=== PATIENT | male | born 1990 | race Caucasian/White ===

== ENCOUNTER 2023-05-17 04:14 | Inpatient (IN) | payer BC ==
[2023-05-17] VITALS (21 sets, daily range): BP systolic 107–142; PULSE 88–108; RESP 10–33; TEMP 96.4–98.5; O2SAT 92–99
[~2023-05-17] VITALS: Ht 188 cm; Wt 111.1 kg
[~2023-05-17 04:14] MED LIST: LIB25 PO; PRED20TA PO; Thiamine Hcl GT
[2023-05-17] MEDS ORDERED: ONDANSETRON HCL 4 MG/2 ML VIAL IVP ONE (04:45)
[2023-05-17] MEDS ORDERED: FUROSEMIDE 40 MG/4 ML VIAL IVP ONE ×2 (04:45→06:00)
[2023-05-17] MEDS ORDERED: MORPHINE 4 MG INJ. 4 MG/ML VIAL IVP ONE (04:45)
[2023-05-17 05:06] LABS: BASOPHILS # (AUTO) 0.1 K/uL (0.0-0.2); BASOPHILS % (AUTO) 0.3 % (0.0-2.0); EOSINOPHILS # (AUTO) 0.1 K/uL (0.0-0.4); EOSINOPHILS % (AUTO) 0.5 % (0.0-4.0); HEMATOCRIT 35.8 % (36-54); LYMPHOCYTES # (AUTO) 0.8 K/uL (1.0-5.5); LYMPHOCYTES % (AUTO) 2.9 % (20.5-51.5); MEAN CORPUSCULAR HEMOGLOBIN 39 pg (27-31); MEAN CORPUSCULAR HGB CONC 34 % (32-36); MEAN CORPUSCULAR VOLUME 116 fL (79.0-98.0); MONOCYTES # (AUTO) 0.5 K/uL (0.0-1.0); NEUTROPHILS % (AUTO) 94.3 % (40.0-70.0); PLATELET COUNT (AUTO) 109 K/uL (130-430); RED BLOOD CELL COUNT(AUTO) 3.08 MIL/uL (4.2-6.2); RED CELL DISTRIBUTION WIDTH 16.5 % (9.0-15.0); WHITE BLOOD COUNT (AUTO) 25.5 K/uL (4.8-10.8)
[2023-05-17 05:20] LABS: CALCIUM 7.4 mg/dL (8.4-11.0); CREATININE 4.15 mg/dL (0.55-1.30); POTASSIUM 5.7 mmol/L (3.5-5.1)
[2023-05-17 05:42] LABS: ALBUMIN 1.3 g/dL (3.4-4.8); TOTAL PROTEIN, SERUM 7.1 g/dL (6.4-8.3)
[2023-05-17] MEDS ORDERED: CALCIUM GLUCONATE 1 GM in NS 100 ML IV ONE (05:45)
[2023-05-17] MEDS ORDERED: INSULIN REGULAR, HUMAN 10 UNITS/0.1 ML, 3 ML VIAL IVP ONE (05:45)
[2023-05-17] MEDS ORDERED: PIPERACILLIN/TAZOBACTAM 2.25 GM in NS 50 ML IV ONE (05:45)
[2023-05-17] MEDS ORDERED: VANCOMYCIN HCL 1.25 GM/NS 250 ML IV ONE (05:45)
[2023-05-17] MEDS ORDERED: DEXTROSE 50% JECT 50 ML DISP.SYRIN IVP ONE (05:45)
[2023-05-17] MEDS ORDERED: SODIUM POLYSTYRENE SULFONATE 15 GM/60 ML UDBTL PO ONE (05:45)
[2023-05-17 05:53] LABS: TOTAL BILIRUBIN 26.1 mg/dL (0.0-1.0)
[2023-05-17] MEDS ORDERED: ALBUTEROL SULFATE 0.083% 2.5 MG/3 ML VIAL.NEB INH ONE (06:00)
[2023-05-17] MEDS ORDERED: CALCIUM GLUCONATE 1 GM/10 ML VIAL ONE (06:04)
[2023-05-17] MEDS ORDERED: PIPERACILLIN/TAZOBACTAM 2.25 GM VIAL IV ONE (06:05)
[2023-05-17] MEDS ORDERED: VANCOMYCIN HCL 1000 MG/VIAL IV ONE (06:48)
[2023-05-17] MEDS ORDERED: NACL 0.9% 1,000 ML IV ONE (07:45)
[2023-05-17] MEDS ORDERED: FOLIC ACID 1 MG, THIAMINE HCL 100 MG, MAGNESIUM SULFATE 1 GM, MVI 10 ML in NACL 0.9% 1,... IV SCH (10:45)
[2023-05-17] MEDS ORDERED: predniSONE 20 MG TABLET PO ONE (11:00)
[2023-05-17] MEDS ORDERED: THIAMINE HCL 100 MG, MAGNESIUM SULFATE 1 GM in NS 100 ML IV SCH (13:00)
[2023-05-17] MEDS ORDERED: FOLIC ACID 1 MG, MVI 10 ML in NACL 0.9% 1,000 ML IV SCH (13:00)
[2023-05-17] MEDS: chlordiazePOXIDE HCL 25 MG CAPSULE PO SCH ×2 (16:16→22:01)
[2023-05-17] MEDS ORDERED: traMADol HCL HCL 50 MG TABLET (ULTRAM) PO PRN (17:00)
[2023-05-17] MEDS: cefTRIAXone 1 GM in D5W 50 ML IV SCH (17:03)
[2023-05-17 17:21] LABS: CALCIUM 7.3 mg/dL (8.4-11.0); CREATININE 4.27 mg/dL (0.55-1.30); POTASSIUM 5.3 mmol/L (3.5-5.1)
[2023-05-17 17:37] LABS: INR 6.4 (0.80-1.20); PROTHROMBIN TIME 61.3 SECS (9.5-12.5)
[2023-05-17] MEDS ORDERED: PHYTONADIONE 10 MG/ML AMP SUBCUT ONE (18:00)
[2023-05-17] MEDS: ALBUMIN HUMAN 25% 100 ML IV SCH ×2 (18:16→23:13)
[2023-05-17 18:36] LABS: BILIRUBIN,URINE 3+ (NEGATIVE); COLOR,URINE YELLOW (YELLOW); GLUCOSE,URINE NEGATIVE (NEGATIVE); KETONES,URINE NEGATIVE (NEGATIVE); LEUKOCYTE ESTERASE ,URINE NEGATIVE (NEGATIVE); NITRITE, URINE NEGATIVE (NEGATIVE); PH,URINE 5.5 (5.0-8.0); PROTEIN URINE NEGATIVE (NEGATIVE); UROBILINOGEN,URINE 0.2 (0.2-1.0)
[2023-05-17 18:57] LABS: BLOOD, URINE TRACE (NEGATIVE)
[2023-05-17 18:58] LABS: CLARITY/URINE HAZY (CLEAR)
[2023-05-17 19:00] LABS: BACTERIA,URINE None Seen /HPF (None Seen); RBC,URINE 0-3 /HPF (0-3); WBC,URINE 0-3 /HPF (0-3)
[2023-05-17] MEDS: MORPHINE 2 MG/ML INJ. SYRINGE IVP PRN (23:49)
[2023-05-18] VITALS (25 sets, daily range): BP systolic 101–156; PULSE 88–96; RESP 15–36; TEMP 97–98.2; O2SAT 65–100
[2023-05-18] MEDS: ALBUMIN HUMAN 25% 100 ML IV SCH (05:08)
[2023-05-18] MEDS: chlordiazePOXIDE HCL 25 MG CAPSULE PO SCH ×3 (05:38→22:00)
[2023-05-18 06:34] LABS: HEMATOCRIT 30.5 % (36-54); HEMOGLOBIN 10.4 g/dL (14.0-18.0); MEAN CORPUSCULAR HEMOGLOBIN 40 pg (27-31); MEAN CORPUSCULAR HGB CONC 34 % (32-36); MEAN CORPUSCULAR VOLUME 116 fL (79.0-98.0); PLATELET COUNT (AUTO) 63 K/uL (130-430); RED BLOOD CELL COUNT(AUTO) 2.64 MIL/uL (4.2-6.2); RED CELL DISTRIBUTION WIDTH 16.3 % (9.0-15.0); WHITE BLOOD COUNT (AUTO) 18.2 K/uL (4.8-10.8)
[2023-05-18] MEDS: MORPHINE 2 MG/ML INJ. SYRINGE IVP PRN (06:56)
[2023-05-18 06:58] LABS: CREATININE 4.17 mg/dL (0.55-1.30); PHOSPHORUS 9.3 mg/dL (2.7-4.5); POTASSIUM 5.3 mmol/L (3.5-5.1); TOTAL PROTEIN, SERUM 6.6 g/dL (6.4-8.3)
[2023-05-18 07:35] LABS: CALCIUM 6.9 mg/dL (8.4-11.0)
[2023-05-18 07:39] LABS: TOTAL BILIRUBIN 28.3 mg/dL (0.0-1.0)
[2023-05-18 07:51] LABS: ERYTHROCYTE SEDIMENTATION RATE 78 MM/HR (0-15)
[2023-05-18 08:07] LABS: INR 1.7 (0.80-1.20); PROTHROMBIN TIME 17.6 SECS (9.5-12.5)
[2023-05-18] MEDS: predniSONE 20 MG TABLET PO SCH (08:34)
[2023-05-18] MEDS ORDERED: SODIUM POLYSTYRENE SULFONATE 15 GM/60 ML UDBTL PO ONE (09:45)
[2023-05-18] MEDS ORDERED: CALCIUM GLUCONATE 2 GM in NS 80 ML IV ONE (09:45)
[2023-05-18 09:51] LABS: PLATELET ESTIMATE DECREASED (ADEQUATE)
[2023-05-18] MEDS: NACL 0.9% 1,000 ML IV SCH ×2 (11:20→20:38)
[2023-05-18] MEDS: cefTRIAXone 1 GM in D5W 50 ML IV SCH (17:56)
[2023-05-19] VITALS (7 sets, daily range): BP systolic 106–137; PULSE 89–93; RESP 16–18; TEMP 96.9–97.9; O2SAT 95–99
[2023-05-19] MEDS: chlordiazePOXIDE HCL 25 MG CAPSULE PO SCH ×3 (06:00→22:00)
[2023-05-19 06:52] LABS: BASOPHILS # (AUTO) 0.4 K/uL (0.0-0.2); BASOPHILS % (AUTO) 2.5 % (0.0-2.0); EOSINOPHILS # (AUTO) 0.1 K/uL (0.0-0.4); EOSINOPHILS % (AUTO) 0.3 % (0.0-4.0); HEMATOCRIT 31.7 % (36-54); HEMOGLOBIN 10.8 g/dL (14.0-18.0); LYMPHOCYTES # (AUTO) 0.4 K/uL (1.0-5.5); LYMPHOCYTES % (AUTO) 2.1 % (20.5-51.5); MEAN CORPUSCULAR HEMOGLOBIN 39 pg (27-31); MEAN CORPUSCULAR HGB CONC 34 % (32-36); MEAN CORPUSCULAR VOLUME 115 fL (79.0-98.0); MONOCYTES # (AUTO) 0.5 K/uL (0.0-1.0); MONOCYTES % (AUTO) 2.8 % (1.7-9.3); NEUTROPHILS # (AUTO) 16.9 K/uL (1.8-7.7); NEUTROPHILS % (AUTO) 92.3 % (40.0-70.0); PLATELET COUNT (AUTO) 68 K/uL (130-430); RED BLOOD CELL COUNT(AUTO) 2.75 MIL/uL (4.2-6.2); RED CELL DISTRIBUTION WIDTH 16.3 % (9.0-15.0); WHITE BLOOD COUNT (AUTO) 18.3 K/uL (4.8-10.8)
[2023-05-19] MEDS: NACL 0.9% 1,000 ML IV SCH ×2 (07:00→17:19)
[2023-05-19 07:19] LABS: INR 1.8 (0.80-1.20); PROTHROMBIN TIME 18.5 SECS (9.5-12.5)
[2023-05-19 07:29] LABS: ERYTHROCYTE SEDIMENTATION RATE 75 MM/HR (0-15)
[2023-05-19 07:32] LABS: BILIRUBIN,DIRECT 22.6 mg/dL (0.0-0.3); CREATININE 4.08 mg/dL (0.55-1.30); POTASSIUM 4.8 mmol/L (3.5-5.1); TOTAL PROTEIN, SERUM 6.5 g/dL (6.4-8.3)
[2023-05-19 07:59] LABS: CALCIUM 6.7 mg/dL (8.4-11.0); TOTAL BILIRUBIN 29.4 mg/dL (0.0-1.0)
[2023-05-19] MEDS: predniSONE 20 MG TABLET PO SCH (08:26)
[2023-05-20 00:19] VITALS: BP_SYST 127; PULSE 89; RESP 16; TEMP 96.9; O2SAT 99
[2023-05-20] MEDS: NACL 0.9% 1,000 ML IV SCH ×2 (04:20→12:58)
[2023-05-20] MEDS: chlordiazePOXIDE HCL 25 MG CAPSULE PO SCH (05:38)
[2023-05-20 07:30] VITALS: BP_SYST 137; PULSE 90; RESP 18; TEMP 97.5; O2SAT 96
[2023-05-20 07:32] LABS: BASOPHILS # (AUTO) 0.1 K/uL (0.0-0.2); BASOPHILS % (AUTO) 0.3 % (0.0-2.0); EOSINOPHILS % (AUTO) 0.2 % (0.0-4.0); HEMATOCRIT 32.2 % (36-54); LYMPHOCYTES # (AUTO) 0.4 K/uL (1.0-5.5); LYMPHOCYTES % (AUTO) 2.2 % (20.5-51.5); MEAN CORPUSCULAR HEMOGLOBIN 39 pg (27-31); MEAN CORPUSCULAR HGB CONC 34 % (32-36); MEAN CORPUSCULAR VOLUME 115 fL (79.0-98.0); MONOCYTES # (AUTO) 0.6 K/uL (0.0-1.0); MONOCYTES % (AUTO) 3.5 % (1.7-9.3); NEUTROPHILS % (AUTO) 93.8 % (40.0-70.0); PLATELET COUNT (AUTO) 73 K/uL (130-430); RED CELL DISTRIBUTION WIDTH 16.1 % (9.0-15.0); WHITE BLOOD COUNT (AUTO) 18.1 K/uL (4.8-10.8)
[2023-05-20 08:02] LABS: ALBUMIN 1.9 g/dL (3.4-4.8); CREATININE 3.49 mg/dL (0.55-1.30); PHOSPHORUS 7.8 mg/dL (2.7-4.5); POTASSIUM 4.6 mmol/L (3.5-5.1); TOTAL PROTEIN, SERUM 6.4 g/dL (6.4-8.3)
[2023-05-20 08:07] LABS: CALCIUM 6.3 mg/dL (8.4-11.0)
[2023-05-20 08:08] LABS: TOTAL BILIRUBIN 28.4 mg/dL (0.0-1.0)
[2023-05-20 08:37] LABS: INR 1.9 (0.80-1.20); PROTHROMBIN TIME 19.3 SECS (9.5-12.5)
[2023-05-20 09:02] LABS: ERYTHROCYTE SEDIMENTATION RATE 77 MM/HR (0-15)
[2023-05-20] MEDS: predniSONE 20 MG TABLET PO SCH (09:14)
[2023-05-20 12:34] VITALS: BP_SYST 132; PULSE 88; RESP 17; TEMP 97.1; O2SAT 97
[2023-05-20 16:01] VITALS: BP_SYST 135; PULSE 75; RESP 19; TEMP 97.4; O2SAT 98
[2023-05-20] MEDS ORDERED: OCTREOTIDE ACETATE 100 MCG/ML AMP SUBCUT SCH (16:15)
[2023-05-20] MEDS: ALBUMIN HUMAN 25% 50 ML IV SCH ×2 (16:19→21:59)
[2023-05-20] MEDS ORDERED: OCTREOTIDE ACETATE 100 MCG/ML AMP SUBCUT ONE (16:30)
[2023-05-20 19:50] VITALS: BP_SYST 146; PULSE 91; RESP 18; TEMP 96.8; O2SAT 96
[2023-05-20] MEDS: OCTREOTIDE ACETATE 100 MCG/ML AMP SUBCUT SCH (22:00)
[2023-05-21 00:02] VITALS: BP_SYST 136; PULSE 91; RESP 14; TEMP 96.8; O2SAT 95
[2023-05-21] MEDS: NACL 0.9% 1,000 ML IV SCH ×3 (00:51→21:08)
[2023-05-21] MEDS: ALBUMIN HUMAN 25% 50 ML IV SCH ×4 (00:51→12:55)
[2023-05-21] MEDS: OCTREOTIDE ACETATE 100 MCG/ML AMP SUBCUT SCH ×3 (06:00→21:08)
[2023-05-21 06:15] LABS: BASOPHILS % (AUTO) 0.1 % (0.0-2.0); EOSINOPHILS # (AUTO) 0.1 K/uL (0.0-0.4); EOSINOPHILS % (AUTO) 0.3 % (0.0-4.0); HEMATOCRIT 33.4 % (36-54); HEMOGLOBIN 11.2 g/dL (14.0-18.0); LYMPHOCYTES # (AUTO) 0.6 K/uL (1.0-5.5); LYMPHOCYTES % (AUTO) 2.8 % (20.5-51.5); MEAN CORPUSCULAR HEMOGLOBIN 39 pg (27-31); MEAN CORPUSCULAR HGB CONC 34 % (32-36); MEAN CORPUSCULAR VOLUME 115 fL (79.0-98.0); MONOCYTES # (AUTO) 0.8 K/uL (0.0-1.0); MONOCYTES % (AUTO) 3.8 % (1.7-9.3); NEUTROPHILS # (AUTO) 18.2 K/uL (1.8-7.7); PLATELET COUNT (AUTO) 82 K/uL (130-430); RED CELL DISTRIBUTION WIDTH 16.2 % (9.0-15.0); WHITE BLOOD COUNT (AUTO) 19.6 K/uL (4.8-10.8)
[2023-05-21 06:59] LABS: ALBUMIN 2.1 g/dL (3.4-4.8); CREATININE 3.21 mg/dL (0.55-1.30); PHOSPHORUS 7.8 mg/dL (2.7-4.5); POTASSIUM 4.4 mmol/L (3.5-5.1); TOTAL PROTEIN, SERUM 6.5 g/dL (6.4-8.3)
[2023-05-21 07:23] LABS: CALCIUM 6.6 mg/dL (8.4-11.0)
[2023-05-21] MEDS: predniSONE 20 MG TABLET PO SCH (08:09)
[2023-05-21 08:15] VITALS: BP_SYST 137; PULSE 91; RESP 20; O2SAT 96
[2023-05-21 11:37] VITALS: BP_SYST 143; PULSE 89; RESP 16; TEMP 97.8; O2SAT 96
[2023-05-21 12:00] VITALS: BP_SYST 143; PULSE 89; RESP 16; TEMP 97.8; O2SAT 96
[2023-05-21] MEDS ORDERED: CALCIUM GLUCONATE 2 GM in NS 100 ML IV ONE (13:00)
[2023-05-21 16:00] VITALS: BP_SYST 140; PULSE 87; RESP 20; TEMP 98; O2SAT 97
[2023-05-21 20:15] VITALS: BP_SYST 141; PULSE 89; RESP 20; TEMP 96.6; O2SAT 95
[2023-05-21] MEDS: SODIUM BICARBONATE 650 MG TABLET PO SCH (21:08)
[2023-05-22] VITALS: BP_SYST 144; PULSE 89; RESP 18; TEMP 98.5; O2SAT 93
[2023-05-22] MEDS: NACL 0.9% 1,000 ML IV SCH ×3 (05:38→16:56)
[2023-05-22] MEDS: OCTREOTIDE ACETATE 100 MCG/ML AMP SUBCUT SCH ×3 (05:38→20:23)
[2023-05-22 07:40] LABS: HEMATOCRIT 34.8 % (36-54); HEMOGLOBIN 11.7 g/dL (14.0-18.0); MEAN CORPUSCULAR HEMOGLOBIN 39 pg (27-31); MEAN CORPUSCULAR HGB CONC 34 % (32-36); MEAN CORPUSCULAR VOLUME 115 fL (79.0-98.0); PLATELET COUNT (AUTO) 103 K/uL (130-430); RED BLOOD CELL COUNT(AUTO) 3.03 MIL/uL (4.2-6.2); RED CELL DISTRIBUTION WIDTH 16.3 % (9.0-15.0)
[2023-05-22 07:43] LABS: WHITE BLOOD COUNT (AUTO) 25.8 K/uL (4.8-10.8)
[2023-05-22 07:53] LABS: ALBUMIN 2.5 g/dL (3.4-4.8); CALCIUM 7.4 mg/dL (8.4-11.0); CREATININE 3.03 mg/dL (0.55-1.30); PHOSPHORUS 7.1 mg/dL (2.7-4.5); POTASSIUM 4.6 mmol/L (3.5-5.1); TOTAL PROTEIN, SERUM 6.8 g/dL (6.4-8.3)
[2023-05-22 07:59] LABS: TOTAL BILIRUBIN 29.4 mg/dL (0.0-1.0)
[2023-05-22 08:00] VITALS: BP_SYST 142; PULSE 87; RESP 20; TEMP 97.2; O2SAT 97
[2023-05-22 08:28] VITALS: O2SAT 96
[2023-05-22] MEDS: predniSONE 20 MG TABLET PO SCH (09:15)
[2023-05-22] MEDS: SODIUM BICARBONATE 650 MG TABLET PO SCH ×2 (09:15→20:23)
[2023-05-22 12:37] LABS: ANISOCYTOSIS 1+; ATYPICAL LYMPHOCYTES % 0 % (0-0); BAND % (MANUAL) 7 % (0-6); BASOPHILS % (MANUAL) 0 % (0-2); EOSINOPHILS % (MANUAL) 0 % (0-7); LYMPHOCYTES % (MANUAL) 2 % (20-46); MONOCYTES % (MANUAL) 2 % (0-11); MYELOCYTES % 1 % (0-0); PLATELET ESTIMATE DECREASED (ADEQUATE)
[2023-05-22 12:38] LABS: HYPOCHROMASIA 1+
[2023-05-22 16:00] VITALS: BP_SYST 132; PULSE 85; RESP 18; TEMP 98; O2SAT 99
[2023-05-22 19:55] VITALS: BP_SYST 138; PULSE 86; RESP 18; TEMP 96.9; O2SAT 97
[2023-05-23 00:39] VITALS: BP_SYST 129; PULSE 80; RESP 18; TEMP 96.7; O2SAT 97
[2023-05-23] MEDS: OCTREOTIDE ACETATE 100 MCG/ML AMP SUBCUT SCH ×3 (05:34→21:01)
[2023-05-23 06:54] LABS: BASOPHILS % (AUTO) 0.2 % (0.0-2.0); EOSINOPHILS # (AUTO) 0.1 K/uL (0.0-0.4); EOSINOPHILS % (AUTO) 0.3 % (0.0-4.0); HEMATOCRIT 34.6 % (36-54); HEMOGLOBIN 11.5 g/dL (14.0-18.0); LYMPHOCYTES # (AUTO) 0.6 K/uL (1.0-5.5); LYMPHOCYTES % (AUTO) 2.4 % (20.5-51.5); MEAN CORPUSCULAR HEMOGLOBIN 39 pg (27-31); MEAN CORPUSCULAR HGB CONC 33 % (32-36); MEAN CORPUSCULAR VOLUME 116 fL (79.0-98.0); MONOCYTES % (AUTO) 4.1 % (1.7-9.3); NEUTROPHILS # (AUTO) 23.2 K/uL (1.8-7.7); PLATELET COUNT (AUTO) 75 K/uL (130-430); RED BLOOD CELL COUNT(AUTO) 2.97 MIL/uL (4.2-6.2); RED CELL DISTRIBUTION WIDTH 16.1 % (9.0-15.0)
[2023-05-23 07:25] LABS: ERYTHROCYTE SEDIMENTATION RATE 60 MM/HR (0-15)
[2023-05-23 07:26] LABS: ALBUMIN 2.1 g/dL (3.4-4.8); CREATININE 2.57 mg/dL (0.55-1.30); PHOSPHORUS 6.1 mg/dL (2.7-4.5); POTASSIUM 4.2 mmol/L (3.5-5.1); TOTAL PROTEIN, SERUM 6.4 g/dL (6.4-8.3)
[2023-05-23 07:29] LABS: TOTAL BILIRUBIN 27.6 mg/dL (0.0-1.0)
[2023-05-23 07:45] VITALS: BP_SYST 122; PULSE 66; RESP 16; TEMP 98; O2SAT 96
[2023-05-23 08:00] VITALS: O2SAT 98
[2023-05-23] MEDS: RIFAXIMIN 200 MG TABLET PO SCH ×2 (08:22→20:57)
[2023-05-23] MEDS: SODIUM BICARBONATE 650 MG TABLET PO SCH ×2 (08:22→20:57)
[2023-05-23] MEDS: predniSONE 20 MG TABLET PO SCH (08:22)
[2023-05-23] MEDS: NACL 0.9% 1,000 ML IV SCH ×2 (09:45→19:45)
[2023-05-23 11:30] VITALS: BP_SYST 154; PULSE 86; RESP 18; TEMP 98.6; O2SAT 97
[2023-05-23] MEDS: ALBUMIN HUMAN 25% 50 ML IV SCH ×3 (13:15→20:56)
[2023-05-23 17:27] VITALS: BP_SYST 162; PULSE 72; RESP 18; TEMP 98; O2SAT 98
[2023-05-23 22:00] VITALS: O2SAT 98
[2023-05-24 00:58] VITALS: BP_SYST 138; PULSE 80; RESP 17; TEMP 98; O2SAT 96
[2023-05-24] MEDS: ALBUMIN HUMAN 25% 50 ML IV SCH (01:23)
[2023-05-24 05:40] LABS: BASOPHILS # (AUTO) 0.1 K/uL (0.0-0.2); BASOPHILS % (AUTO) 0.3 % (0.0-2.0); EOSINOPHILS # (AUTO) 0.2 K/uL (0.0-0.4); EOSINOPHILS % (AUTO) 0.8 % (0.0-4.0); HEMATOCRIT 31.2 % (36-54); HEMOGLOBIN 10.6 g/dL (14.0-18.0); LYMPHOCYTES # (AUTO) 0.8 K/uL (1.0-5.5); MEAN CORPUSCULAR HEMOGLOBIN 39 pg (27-31); MEAN CORPUSCULAR HGB CONC 34 % (32-36); MEAN CORPUSCULAR VOLUME 115 fL (79.0-98.0); MONOCYTES # (AUTO) 1.2 K/uL (0.0-1.0); MONOCYTES % (AUTO) 4.7 % (1.7-9.3); NEUTROPHILS # (AUTO) 23.7 K/uL (1.8-7.7); NEUTROPHILS % (AUTO) 91.2 % (40.0-70.0); PLATELET COUNT (AUTO) 67 K/uL (130-430); RED BLOOD CELL COUNT(AUTO) 2.71 MIL/uL (4.2-6.2); RED CELL DISTRIBUTION WIDTH 16.1 % (9.0-15.0); WHITE BLOOD COUNT (AUTO) 25.9 K/uL (4.8-10.8)
[2023-05-24 06:13] LABS: PROTHROMBIN TIME 20.1 SECS (9.5-12.5)
[2023-05-24 06:26] LABS: ALBUMIN 2.4 g/dL (3.4-4.8); CALCIUM 8.4 mg/dL (8.4-11.0); CREATININE 2.27 mg/dL (0.55-1.30); PHOSPHORUS 5.5 mg/dL (2.7-4.5); POTASSIUM 3.7 mmol/L (3.5-5.1); TOTAL PROTEIN, SERUM 6.3 g/dL (6.4-8.3)
[2023-05-24 06:31] LABS: TOTAL BILIRUBIN 26.8 mg/dL (0.0-1.0)
[2023-05-24] MEDS: NACL 0.9% 1,000 ML IV SCH ×2 (06:58→16:38)
[2023-05-24] MEDS: OCTREOTIDE ACETATE 100 MCG/ML AMP SUBCUT SCH ×3 (06:58→21:41)
[2023-05-24 08:00] VITALS: BP_SYST 143; PULSE 91; RESP 20; TEMP 98.9; O2SAT 97
[2023-05-24] MEDS: RIFAXIMIN 200 MG TABLET PO SCH (09:08)
[2023-05-24] MEDS: SODIUM BICARBONATE 650 MG TABLET PO SCH ×2 (09:08→20:18)
[2023-05-24 12:00] VITALS: BP_SYST 150; PULSE 102; RESP 20; TEMP 98.1; O2SAT 99
[2023-05-24] MEDS: ALBUMIN HUMAN 25% 100 ML IV SCH ×3 (14:52→23:46)
[2023-05-24 16:00] VITALS: BP_SYST 139; PULSE 96; RESP 20; TEMP 98.8; O2SAT 98
[2023-05-24 20:00] VITALS: BP_SYST 144; PULSE 103; RESP 18; TEMP 98.4; O2SAT 96; O2SAT 98
[2023-05-24] MEDS: RIFAXIMIN 550 MG TABLET PO SCH (20:18)
[2023-05-25 01:21] VITALS: BP_SYST 143; PULSE 114; RESP 16; TEMP 97.8; O2SAT 97
[2023-05-25] MEDS: NACL 0.9% 1,000 ML IV SCH ×3 (01:45→21:22)
[2023-05-25] MEDS: OCTREOTIDE ACETATE 100 MCG/ML AMP SUBCUT SCH ×3 (05:14→21:22)
[2023-05-25 05:47] LABS: ERYTHROCYTE SEDIMENTATION RATE 14 MM/HR (0-15)
[2023-05-25 05:53] LABS: BASOPHILS # (AUTO) 0.3 K/uL (0.0-0.2); BASOPHILS % (AUTO) 1.1 % (0.0-2.0); EOSINOPHILS # (AUTO) 0.8 K/uL (0.0-0.4); EOSINOPHILS % (AUTO) 3.2 % (0.0-4.0); HEMOGLOBIN 9.7 g/dL (14.0-18.0); LYMPHOCYTES # (AUTO) 0.7 K/uL (1.0-5.5); LYMPHOCYTES % (AUTO) 3.1 % (20.5-51.5); MEAN CORPUSCULAR HEMOGLOBIN 39 pg (27-31); MEAN CORPUSCULAR HGB CONC 34 % (32-36); MEAN CORPUSCULAR VOLUME 116 fL (79.0-98.0); MONOCYTES # (AUTO) 0.6 K/uL (0.0-1.0); MONOCYTES % (AUTO) 2.6 % (1.7-9.3); NEUTROPHILS # (AUTO) 21.4 K/uL (1.8-7.7); PLATELET COUNT (AUTO) 63 K/uL (130-430); RED BLOOD CELL COUNT(AUTO) 2.51 MIL/uL (4.2-6.2); RED CELL DISTRIBUTION WIDTH 15.7 % (9.0-15.0); WHITE BLOOD COUNT (AUTO) 23.8 K/uL (4.8-10.8)
[2023-05-25 06:17] LABS: PROTHROMBIN TIME 20.3 SECS (9.5-12.5)
[2023-05-25 06:41] LABS: ALBUMIN 2.9 g/dL (3.4-4.8); CALCIUM 8.6 mg/dL (8.4-11.0); CREATININE 2.33 mg/dL (0.55-1.30); PHOSPHORUS 4.1 mg/dL (2.7-4.5); POTASSIUM 3.3 mmol/L (3.5-5.1); TOTAL PROTEIN, SERUM 6.1 g/dL (6.4-8.3)
[2023-05-25 06:43] LABS: TOTAL BILIRUBIN 26.4 mg/dL (0.0-1.0)
[2023-05-25 08:55] VITALS: BP_SYST 158; PULSE 113; RESP 18; TEMP 99; O2SAT 96
[2023-05-25] MEDS: SODIUM BICARBONATE 650 MG TABLET PO SCH ×2 (09:23→21:21)
[2023-05-25] MEDS: RIFAXIMIN 550 MG TABLET PO SCH ×2 (09:23→21:21)
[2023-05-25] MEDS ORDERED: POTASSIUM CHLORIDE 20 MEQ TAB.PRT.SR PO ONE (11:00)
[2023-05-25 12:27] VITALS: BP_SYST 132; PULSE 107; RESP 16; TEMP 98.9; O2SAT 98
[2023-05-25 16:03] VITALS: BP_SYST 148; PULSE 111; RESP 17; TEMP 98.8; O2SAT 98
[2023-05-25 19:30] VITALS: BP_SYST 134; PULSE 88; RESP 18; TEMP 98.1; O2SAT 96
[2023-05-26] VITALS: BP_SYST 139; PULSE 107; RESP 16; TEMP 98.1; O2SAT 98
[2023-05-26 05:27] LABS: ERYTHROCYTE SEDIMENTATION RATE 13 MM/HR (0-15)
[2023-05-26 05:43] LABS: BASOPHILS # (AUTO) 0.2 K/uL (0.0-0.2); BASOPHILS % (AUTO) 0.6 % (0.0-2.0); EOSINOPHILS # (AUTO) 0.6 K/uL (0.0-0.4); EOSINOPHILS % (AUTO) 2.3 % (0.0-4.0); HEMOGLOBIN 10.1 g/dL (14.0-18.0); INR 2.1 (0.80-1.20); LYMPHOCYTES # (AUTO) 1.1 K/uL (1.0-5.5); LYMPHOCYTES % (AUTO) 3.9 % (20.5-51.5); MEAN CORPUSCULAR HEMOGLOBIN 39 pg (27-31); MEAN CORPUSCULAR HGB CONC 34 % (32-36); MEAN CORPUSCULAR VOLUME 116 fL (79.0-98.0); MONOCYTES # (AUTO) 1.2 K/uL (0.0-1.0); MONOCYTES % (AUTO) 4.2 % (1.7-9.3); NEUTROPHILS # (AUTO) 25.3 K/uL (1.8-7.7); PLATELET COUNT (AUTO) 62 K/uL (130-430); PROTHROMBIN TIME 21.4 SECS (9.5-12.5); RED CELL DISTRIBUTION WIDTH 15.6 % (9.0-15.0); WHITE BLOOD COUNT (AUTO) 28.4 K/uL (4.8-10.8)
[2023-05-26 06:18] LABS: ALBUMIN 2.5 g/dL (3.4-4.8); CALCIUM 8.6 mg/dL (8.4-11.0); CREATININE 2.37 mg/dL (0.55-1.30); PHOSPHORUS 4.2 mg/dL (2.7-4.5); POTASSIUM 3.9 mmol/L (3.5-5.1); TOTAL PROTEIN, SERUM 5.8 g/dL (6.4-8.3)
[2023-05-26] MEDS: NACL 0.9% 1,000 ML IV SCH ×2 (06:22→16:52)
[2023-05-26] MEDS: OCTREOTIDE ACETATE 100 MCG/ML AMP SUBCUT SCH ×3 (06:25→21:42)
[2023-05-26 08:33] VITALS: BP_SYST 157; PULSE 103; RESP 18; TEMP 97.3; O2SAT 97
[2023-05-26] MEDS: SODIUM BICARBONATE 650 MG TABLET PO SCH ×2 (08:48→21:34)
[2023-05-26] MEDS: RIFAXIMIN 550 MG TABLET PO SCH ×2 (08:49→21:34)
[2023-05-26 12:45] VITALS: BP_SYST 143; PULSE 98; RESP 18; TEMP 98.6; O2SAT 98
[2023-05-26 16:54] VITALS: BP_SYST 157; PULSE 100; RESP 18; TEMP 98.2; O2SAT 97
[2023-05-26 19:51] VITALS: BP_SYST 140; RESP 18; TEMP 98.6; O2SAT 98
[2023-05-26 21:30] VITALS: O2SAT 98
[2023-05-27 00:35] VITALS: BP_SYST 137; PULSE 99; RESP 18; TEMP 98.3; O2SAT 98
[2023-05-27] MEDS: NACL 0.9% 1,000 ML IV SCH ×2 (04:48→14:52)
[2023-05-27] MEDS: OCTREOTIDE ACETATE 100 MCG/ML AMP SUBCUT SCH ×3 (06:45→20:54)
[2023-05-27 07:03] LABS: HEMATOCRIT 29.5 % (36-54); MEAN CORPUSCULAR HEMOGLOBIN 39 pg (27-31); MEAN CORPUSCULAR HGB CONC 34 % (32-36); MEAN CORPUSCULAR VOLUME 114 fL (79.0-98.0); PLATELET COUNT (AUTO) 63 K/uL (130-430); RED BLOOD CELL COUNT(AUTO) 2.58 MIL/uL (4.2-6.2); RED CELL DISTRIBUTION WIDTH 15.9 % (9.0-15.0); WHITE BLOOD COUNT (AUTO) 28.2 K/uL (4.8-10.8)
[2023-05-27 07:31] LABS: PROTHROMBIN TIME 20.5 SECS (9.5-12.5)
[2023-05-27 08:01] LABS: ALBUMIN 2.2 g/dL (3.4-4.8); CALCIUM 8.5 mg/dL (8.4-11.0); CREATININE 2.39 mg/dL (0.55-1.30); ERYTHROCYTE SEDIMENTATION RATE 17 MM/HR (0-15); PHOSPHORUS 4.2 mg/dL (2.7-4.5); POTASSIUM 3.8 mmol/L (3.5-5.1); TOTAL PROTEIN, SERUM 5.8 g/dL (6.4-8.3)
[2023-05-27 08:11] LABS: TOTAL BILIRUBIN 26.7 mg/dL (0.0-1.0)
[2023-05-27 08:28] VITALS: BP_SYST 149; PULSE 102; RESP 18; TEMP 97.8; O2SAT 94
[2023-05-27] MEDS: SODIUM BICARBONATE 650 MG TABLET PO SCH ×2 (09:12→20:52)
[2023-05-27] MEDS: RIFAXIMIN 550 MG TABLET PO SCH ×2 (09:12→20:52)
[2023-05-27 09:29] LABS: BAND % (MANUAL) 5 % (0-6); EOSINOPHILS % (MANUAL) 4 % (0-7); LYMPHOCYTES % (MANUAL) 3 % (20-46); MONOCYTES % (MANUAL) 6 % (0-11)
[2023-05-27 09:30] LABS: ANISOCYTOSIS 1+; BASOPHILS % (MANUAL) 0 % (0-2); PLATELET ESTIMATE DECREASED (ADEQUATE)
[2023-05-27 12:00] VITALS: BP_SYST 140; PULSE 100; RESP 17; TEMP 98; O2SAT 97
[2023-05-27 16:30] VITALS: BP_SYST 145; PULSE 101; RESP 18; TEMP 97.9; O2SAT 96
[2023-05-27 21:00] VITALS: BP_SYST 162; PULSE 105; RESP 20; TEMP 97.5; O2SAT 99
[2023-05-28 01:10] VITALS: BP_SYST 131; PULSE 103; RESP 20; TEMP 97.7; O2SAT 98
[2023-05-28] MEDS: NACL 0.9% 1,000 ML IV SCH ×2 (02:57→09:45)
[2023-05-28] MEDS: OCTREOTIDE ACETATE 100 MCG/ML AMP SUBCUT SCH ×2 (06:13→14:11)
[2023-05-28 07:05] LABS: BASOPHILS # (AUTO) 0.3 K/uL (0.0-0.2); EOSINOPHILS # (AUTO) 0.5 K/uL (0.0-0.4); EOSINOPHILS % (AUTO) 1.8 % (0.0-4.0); HEMATOCRIT 30.7 % (36-54); HEMOGLOBIN 10.3 g/dL (14.0-18.0); LYMPHOCYTES # (AUTO) 1.7 K/uL (1.0-5.5); LYMPHOCYTES % (AUTO) 6.4 % (20.5-51.5); MEAN CORPUSCULAR HEMOGLOBIN 38 pg (27-31); MEAN CORPUSCULAR HGB CONC 33 % (32-36); MEAN CORPUSCULAR VOLUME 114 fL (79.0-98.0); MONOCYTES # (AUTO) 1.7 K/uL (0.0-1.0); MONOCYTES % (AUTO) 6.4 % (1.7-9.3); NEUTROPHILS # (AUTO) 21.9 K/uL (1.8-7.7); PLATELET COUNT (AUTO) 68 K/uL (130-430); RED BLOOD CELL COUNT(AUTO) 2.69 MIL/uL (4.2-6.2); RED CELL DISTRIBUTION WIDTH 15.9 % (9.0-15.0)
[2023-05-28 07:27] LABS: NEUTROPHILS % (AUTO) 84.4 % (40.0-70.0)
[2023-05-28 07:41] LABS: ALBUMIN 2.1 g/dL (3.4-4.8); CALCIUM 8.5 mg/dL (8.4-11.0); CREATININE 2.92 mg/dL (0.55-1.30); PHOSPHORUS 5.2 mg/dL (2.7-4.5); POTASSIUM 4.2 mmol/L (3.5-5.1); TOTAL PROTEIN, SERUM 5.9 g/dL (6.4-8.3)
[2023-05-28 07:47] LABS: TOTAL BILIRUBIN 27.3 mg/dL (0.0-1.0)
[2023-05-28 08:00] VITALS: BP_SYST 140; PULSE 100; RESP 20; TEMP 97.9; O2SAT 98
[2023-05-28] MEDS: SODIUM BICARBONATE 650 MG TABLET PO SCH (11:08)
[2023-05-28] MEDS: RIFAXIMIN 550 MG TABLET PO SCH (11:08)
[2023-05-28 12:00] VITALS: BP_SYST 135; PULSE 101; RESP 19; TEMP 97.6; O2SAT 97
[2023-05-28] MEDS ORDERED: CEPH250S PO (12:17)
[2023-05-28] MEDS ORDERED: RIFA550T5 PO (12:17)
[2023-05-28 16:00] VITALS: BP_SYST 139; PULSE 99; RESP 20; TEMP 97.8; O2SAT 98
== END 2023-05-28 17:30 | disposition home health service (06) | DRG 871 ==
LOC: SED 04:14 → SIC 07:18 → STU 09:53 → SIC 05-18 12:04 → STU 05-18 13:34 → SMU 05-19 17:04 → STU 05-20 09:52
PROVIDERS: ADMIT Preventive Medicine Preventive Medicine/Occupational Environmental Medicine; ATTEND Preventive Medicine Preventive Medicine/Occupational Environmental Medicine
PROC: 30233K1 Transfusion of Nonautologous Frozen Plasma into Peripheral Vein, Percutaneous Approach (ICD-10-PCS; principal; 2023-05-17)
DX: A41.51 Sepsis due to Escherichia coli [E. coli] (principal); E43 Unspecified severe protein-calorie malnutrition; K76.7 Hepatorenal syndrome; J18.9 Pneumonia, unspecified organism; E87.1 Hypo-osmolality and hyponatremia; N17.9 Acute kidney failure, unspecified; Z16.24 Resistance to multiple antibiotics; Z16.11 Resistance to penicillins; J81.1 Chronic pulmonary edema; E87.20 Acidosis, unspecified; D68.59 Other primary thrombophilia; D72.829 Elevated white blood cell count, unspecified; D64.9 Anemia, unspecified; E87.5 Hyperkalemia; E83.51 Hypocalcemia; E83.42 Hypomagnesemia; E83.41 Hypermagnesemia; E88.09 Other disorders of plasma-protein metabolism, not elsewhere classified; K70.31 Alcoholic cirrhosis of liver with ascites; K70.11 Alcoholic hepatitis with ascites; K70.40 Alcoholic hepatic failure without coma; R16.0 Hepatomegaly, not elsewhere classified; K57.90 Diverticulosis of intestine, part unspecified, without perforation or abscess without bleeding; K80.20 Calculus of gallbladder without cholecystitis without obstruction; E83.39 Other disorders of phosphorus metabolism; F10.10 Alcohol abuse, uncomplicated; Y90.9 Presence of alcohol in blood, level not specified; D69.6 Thrombocytopenia, unspecified; E80.6 Other disorders of bilirubin metabolism; N30.90 Cystitis, unspecified without hematuria; Z76.82 Awaiting organ transplant status; Z79.899 Other long term (current) drug therapy
CPT/HCPCS: 36415; 71045; 76376; 76700-TC; 76705; 80048; 80053; 80076; 81000; 82140; 82248; 82784; 83605; 83690; 83735; 83880; 84100; 84302; 85007; 85025; 85027; 85610-TC; 85651-TC; 85730-TC; 86886; 86900; 86901; 87040; 87081; 87086; 93005; 94640; 97110-GP; 97116-GP; 97530-GP; 99285; C1751; G0378; G0482; J0610; J0696; J1815; J1940; J2270; J2354; J2405; J2543; J3370; J3411; J3430; J3475; J3490; J7030; J7060; J7512; P9046; P9059